=== PATIENT | female | born 1950 ===

== ENCOUNTER 2019-10-12 10:33 | Outpatient (CLI) | payer OTHER ==
[~2019-10-12 10:33] MED LIST: Surfak PO; TYLENOL EXTRA500 MG PO; ULTRAM50 MG PO; Zestril PO
== END 2019-10-12 10:36 | disposition home or self-care (01) ==
LOC: RAD 10:33
DX: J45.31 Mild persistent asthma with (acute) exacerbation (principal); J30.89 Other allergic rhinitis; J45.30 Mild persistent asthma, uncomplicated